=== PATIENT | male | born 1995 | race Caucasian/White ===

== ENCOUNTER 2017-12-12 00:32 | Emergency (ER) | payer SELFPAY ==
--- NOTE | 2017-12-12 00:51 | EDPHY ---
H & P Time Seen by Provider: 12/12/17 00:44 HPI/ROS: Chief Complaint: Back pain status post fall HPI: 22-year-old male was hiking [place] when he slipped and fell at least 15 ft, landing on his back. Initially patient state he had difficulty moving his legs . This lasted about 30 min. Did not have any numbness. Did not hit his head. No loss of conscious. Patient was a 3 hr evacuation. Patient has since been able to move his legs without difficulty. He is currently complaining of low back pain. No chest pain. No abdominal pain. No extremity injury. ROS: 10 point Review of Systems is negative except as noted in the HPI. PMH: Denies Social History: No smoking, no alcohol, no recreational drug use Family History: non-contributory Physical Exam: Gen: Awake, Alert, Airway Intact HEENT: Head: Atraumatic Eyes: PERRLA, EOMI Ears: No hemotympanum Nose: No epistaxis Mouth: Normal dentition, Airway patent Face: No deformity Neck: non-tender, no stepoff, Full ROM without pain Chest: non-tender, lungs CTA Heart: normal heart tones Abd: soft, non-tender, atraumatic Pelvis: non-tender, stable to AP and Lateral compression Back: Small right flank abrasion, mild midline tenderness of the lumbar spine Ext: atramatic, full ROM Skin: no rash Neuro: CN II-XII intact, Strength 5/5 in all extremities, sensation intact in all extremities Constitutional: Initial Vital Signs Temperature (C) 36.4 C 12/12/17 00:32 Heart Rate 85 12/12/17 00:32 Respiratory Rate 21 H 12/12/17 00:32 Blood Pressure 133/98 H 12/12/17 00:32 O2 Sat (%) 100 12/12/17 00:32 O2 Delivery Mode Nasal Cannula O2 (L/minute) 3 Allergies/Adverse Reactions: No Known Allergies Allergy (Unverified 12/12/17 01:07) Home Medications: Medication Instructions Recorded NK [No Known Home Meds] 12/12/17 Medical Decision Making - Diagnostics Imaging Results: CT scan of cervical spine is negative per Dr. Nieves CT scan of the thoracic spine shows some degenerative disc disease but no acute fracture per Dr. Nieves CT scan of the lumbar spine shows some degenerative disc disease and a mild chronic spondylolisthesis of L3 with no acute fracture per Dr. iNeves. Procedures: Procedure: Trauma ultrasound. Limited echocardiogram for pericardial effusion. Limited bedside ultrasound was performed and interpreted by myself for the indication of: thoracoabdominal trauma utilizing the thoracoabdominal emergency ultrasound protocol. Limited transthoracic echocardiogram: The pericardium was visualized and found to be negative for pericardial fluid. The study was negative for pericardial effusion. Limited abdominal ultrasound for blunt abdominal trauma. 1) The right upper quadrant was visualized and was found to be negative for intraperitoneal fluid. 2) The left upper quadrant was visualized and found to be negative for intraperitoneal fluid. The study was felt to be negative for free intraperitoneal fluid. Limited pelvic ultrasound was conducted for abdominal trauma. The bladder was visualized and did not reveal an anechoic area outside of the adjacent urinary bladder. The study was felt to be negative for free intraperitoneal fluid. ED Course/Re-evaluation: Patient arrived as a full trauma activation, Dr. Boyer at bedside with myself. Patient awake alert neurologically intact. Fast exam negative by me. Patient to CT scan. 0150 patient's CTs are negative for acute injury. Cervical collar has been removed by me. Will start to mobilize him. He has been given Toradol 30 mg IV. 0205 patient is ambulating unassisted in the emergency department. He is currently without complaints. Will discharge with follow-up with primary care as an outpatient, he has been given instructions for back pain and indications to return. - Data Points Laboratory Results: Laboratory Results 12/12/17 00:33 12/12/17 00:33 12/12/17 12/12/17 12/12/17 00:33 00:33 00:33 WBC 18.45 10^3/uL H 10^3/uL (3.80-9.50) RBC 5.90 10^6/uL 10^6/uL (4.40-6.38) Hgb 17.0 g/dL g/dL (13.7-17.5) Hct 49.1 % % (40.0-51.0) MCV 83.2 fL fL (81.5-99.8) MCH 28.8 pg pg (27.9-34.1) MCHC 34.6 g/dL g/dL (32.4-36.7) RDW 12.3 % % (11.5-15.2) Plt Count 309 10^3/uL 10^3/uL (150-400) MPV 10.4 fL fL (8.7-11.7) Neut % (Auto) 76.7 % H % (39.3-74.2) Lymph % (Auto) 14.9 % L % (15.0-45.0) Mclean % (Auto) 7.3 % % (4.5-13.0) Eos % (Auto) 0.1 % L % (0.6-7.6) Baso % (Auto) 0.4 % % (0.3-1.7) Nucleat RBC Rel Count 0.0 % % (0.0-0.2) Absolute Neuts (auto) 14.17 10^3/uL H 10^3/uL (1.70-6.50) Absolute Lymphs (auto) 2.75 10^3/uL 10^3/uL (1.00-3.00) Absolute Monos (auto) 1.34 10^3/uL H 10^3/uL (0.30-0.80) Absolute Eos (auto) 0.01 10^3/uL L 10^3/uL (0.03-0.40) Absolute Basos (auto) 0.07 10^3/uL 10^3/uL (0.02-0.10) Absolute Nucleated RBC 0.00 10^3/uL 10^3/uL (0-0.01) Immature Gran % 0.6 % % (0.0-1.1) Immature Gran # 0.11 10^3/uL H 10^3/uL (0.00-0.10) PT 14.6 SEC SEC (12.0-15.0) INR 1.12 (0.83-1.16) APTT 23.5 SEC SEC (23.0-38.0) Sodium 149 mEq/L H mEq/L (135-145) Potassium 4.3 mEq/L mEq/L (3.5-5.2) Chloride 111 mEq/L H mEq/L (97-110) Carbon Dioxide 19 mEq/l L mEq/l (22-31) Anion Gap 19 mEq/L H mEq/L (8-16) BUN 20 mg/dL mg/dL (7-23) Creatinine 1.2 mg/dL mg/dL (0.7-1.3) Estimated GFR > 60 Glucose 70 mg/dL mg/dL (70-100) Calcium 11.2 mg/dL H mg/dL (8.5-10.4) Phosphorus 2.5 mg/dL mg/dL (2.5-4.5) Ethyl Alcohol < 10 mg/dL mg/dL (0-10) Medications Given: Discontinued Medications Ketorolac Tromethamine (Toradol) 30 mg IVP EDNOW ONE Stop: 12/12/17 01:50 Last Admin: 12/12/17 01:52 Dose: 30 mg Departure - Departure Disposition: Home, Routine, Self-Care Clinical Impression: Back contusion, Abrasion, Fall Condition: Good Instructions: Abrasion (ED), Back Pain (ED), Lower Back Exercises (ED) Additional Instructions: Take ibuprofen, 600 mg, 3 times a day. You may also take acetaminophen, 1000 mg every 6 hours, do not exceed 3000 mg in 24 hr. Make sure to remain active. Did do not lay in bed or sit in a chair for long periods. It is important to remain active and keep your back moving in order to improve. Please see the attached back exercise instructions. Follow up with primary care in 3-4 days for further evaluation. Return to the emergency department for increasing pain, numbness, weakness, falls, headache, nausea, vomiting, or any other concerns. Referrals: Aisha Britton MD [[facility] [place] Primary Care Provider] - As per Instructions
[2017-12-12 01:02] LABS: PLATELET COUNT 309 10^3/uL (150-400)
[2017-12-12 01:06] LABS: INR 1.12 (0.83-1.16); PROTIME(PATIENT) 14.6 SEC (12.0-15.0)
--- NOTE | 2017-12-12 01:08 | GHP ---
[f rep st] HISTORY AND PHYSICAL DATE OF ADMISSION: 12/12/2017 CHIEF COMPLAINT: Fall from 20 feet. HISTORY OF PRESENT ILLNESS: This patient is a 22-year-old man who was [place] when he fell and got wedged in a spot. He reports that he had inability to move his legs for about 20 minutes, he is unsure if that was due to fear or the positioning; that since has resolved. He had no neurologic deficits. He had no loss of consciousness. He landed on his back fairly hard when he landed. PAST MEDICAL HISTORY: None. SOCIAL HISTORY: He is a student. He is a nonsmoker. FAMILY HISTORY: Noncontributory. REVIEW OF SYSTEMS: 10-point review of systems negative. PHYSICAL EXAMINATION: VITALS: Reviewed. He is hypertensive. Otherwise vitals stable. GENERAL: Pleasant obese man, lying on gurney. Cooperative with exam. He is pleasant. HEENT: Normocephalic. No gross hearing deficits. No hemotympanum. No otorrhea. No rhinorrhea. Pupils equal, round, reactive to light. Teeth fit together normally. No midface instability. LUNGS: Clear to auscultation bilaterally. No increased work of breathing. CARDIAC: Regular rate. ABDOMEN: Soft, nontender, nondistended. FAST exam performed by Dr. Duenas and was negative. EXTREMITIES: 5/5 strength upper and lower extremities. He had some tenderness when he raised his left lower extremity. NEURO: Grossly intact. PSYCHIATRIC: Mood and affect normal. SKIN: Very small abrasion on the right flank. IMPRESSION AND PLAN: This patient is a 22-year-old man who fell with transient inability to move his legs, which has since resolved. I personally reviewed the results of his chest x-ray and did not see any hemopneumothorax, did not see any obvious compression fracture. He is going to the scanner for scan of his cervical, thoracic, lumbar spine. I spent 60 minutes face to face, in the CT scanner with the patient and reviewing films CT results with no fractures. Ambulated in ER and was discharged home /[id number]/MODL MTDD
[2017-12-12 01:11] VITALS: TEMP 97.5
[2017-12-12] MEDS ORDERED: KETOROLAC 30 MG/1 ML SDV IVP ONE (01:49)
[2017-12-12] MEDS ORDERED: KETOROLAC 30 MG/1 ML SDV ONE (01:49)
[2017-12-12 02:25] VITALS: BP 143/98; PULSE 105; RESP 16; O2SAT 97
== END 2017-12-12 02:26 | disposition home or self-care (01) ==
LOC: EDUNIT#
DX: S30.0XXA Contusion of lower back and pelvis, initial encounter (principal); S30.811A Abrasion of abdominal wall, initial encounter; W01.0XXA Fall on same level from slipping, tripping and stumbling without subsequent striking against object, initial encounter; Y92.89 Other specified places as the place of occurrence of the external cause; Y99.8 Other external cause status; Y93.01 Activity, walking, marching and hiking
CPT/HCPCS: 96374; G0480; J1885